=== PATIENT | female | born 1980 ===

== ENCOUNTER 2017-11-15 18:35 | Emergency (ER) | payer SELFPAY ==
[2017-11-15 18:42] VITALS: BP 104/69; PULSE 71; RESP 16; TEMP 98.2; O2SAT 98
--- NOTE | 2017-11-15 20:06 | C.PDOC ---
History Of Present Illness 37yo female, comes to ER with complaints of headache and right shoulder pain since this morning. She states she worked overnight last night and possibly strained her arm. Patient reports she went home and took Advil but was unable to sleep due to the pain. She additionally complains of pain around her head, described as a pressure-like sensation. Otherwise, no headache, weakness, numbness, tingling, and she offers no additional medical complaints. PMD: None provided Time Seen by Provider: 11/15/17 19:12 Chief Complaint (Nursing): Headache History Per: Patient History/Exam Limitations: no limitations Onset/Duration Of Symptoms: Days Current Symptoms Are (Timing): Still Present Quality: "Pain" Associated Symptoms: denies: Photophobia, Blurred Vision, Nausea, Vomiting, Extremity Weakness Additional History Per: Patient Past Medical History Reviewed: Historical Data, Nursing Documentation, Vital Signs Vital Signs: Last Vital Signs Temp 98.2 F 11/15/17 18:40 Pulse 71 11/15/17 18:40 Resp 16 11/15/17 18:40 BP 104/69 11/15/17 18:40 Pulse Ox 98 11/16/17 00:20 - Medical History PMH: No Chronic Diseases Surgical History: No Surg Hx Family History: States: No Known Family Hx - Social History Hx Alcohol Use: No Hx Substance Use: No - Immunization History Hx Tetanus Toxoid Vaccination: No Hx Influenza Vaccination: No Hx Pneumococcal Vaccination: No Review Of Systems Constitutional: Negative for: Fever, Chills Eyes: Negative for: Vision Change Gastrointestinal: Negative for: Nausea, Vomiting Musculoskeletal: Positive for: Shoulder Pain (right) Neurological: Positive for: Headache Physical Exam - Physical Exam Appears: Non-toxic Skin: Warm, Dry, No Diaphoretic, No Pale Head: Atraumatic, Normacephalic, No Tenderness, No Swelling Eye(s): bilateral: Normal Inspection, PERRL, EOMI, Other (no nystagmus) Oral Mucosa: Moist Neck: Normal ROM, Supple Chest: Symmetrical Cardiovascular: Rhythm Regular Respiratory: Normal Breath Sounds Extremity: Normal ROM, Tenderness (lateral right shoulder with mild tenderness) , No Deformity, No Swelling Pulses: Left Radial: Normal, Right Radial: Normal Neurological/Psych: Oriented x3, Normal Speech, Normal Cranial Nerves, Normal Motor, Normal Sensation Gait: Steady ED Course And Treatment O2 Sat by Pulse Oximetry: 98 (RA) Pulse Ox Interpretation: Normal Medical Decision Making Medical Decision Making: Impression: Headache, right shoulder pain Plan: * Flexeril 10mg PO * Motrin 600mg PO * Tylenol 650mg PO Progress: On re-examination, patient is resting comfortably in no acute distress. Patient reports improvement of symptoms. Patient feels comfortable going home and will be discharged. Disposition Counseled Patient/Family Regarding: Diagnosis, Need For Followup, Rx Given - Disposition Referrals: [facility] [Outside] [facility] [Outside] [facility] [Outside] Disposition: HOME/ ROUTINE Disposition Time: 20:04 Condition: STABLE Additional Instructions: Vaya a martinez mdico o la clnica en 2-5 roe sin falta, para mas evaluacin. [place] los medicamentos darline indicado. Volver a la keaton de emergencia en cualquier momento si los sntomas persisten o empeoran. Prescriptions: Cyclobenzaprine [Cyclobenzaprine HCl] 10 mg PO TID #30 tab Ibuprofen [Motrin] 600 mg PO Q8 #30 tab Instructions: Headache, Adult (DC) Forms: Handseeing Information (Wolof) Print Language: SYRIAC - POA Present On Arrival: None - Clinical Impression Clinical Impression: Headache, Shoulder sprain - PA / [employer] / Resident Statement MD/DO has reviewed & agrees with the documentation as recorded. - Scribe Statement The provider has reviewed the documentation as recorded by the Alicia Dougherty Provider Attestation: All medical record entries made by the Scribe were at my direction and personally dictated by me. I have reviewed the chart and agree that the record accurately reflects my personal performance of the history, physical exam, medical decision making, and the department course for this patient. I have also personally directed, reviewed, and agree with the discharge instructions and disposition.
== END 2017-11-15 20:32 | disposition home or self-care (01) ==
LOC: C.ER 18:35
DX: R51 Headache (principal); S43.401A Unspecified sprain of right shoulder joint, initial encounter; X58.XXXA Exposure to other specified factors, initial encounter